=== PATIENT | male | born 1965 | race Caucasian/White ===

== ENCOUNTER 2018-10-28 21:06 | Emergency (ER) | payer BC ==
[~2018-10-28] VITALS: Ht 182.9 cm; Wt 95.3 kg
[2018-10-28 21:13] VITALS: Ht 182.9 cm; Wt 95.3 kg
[2018-10-28 22:11] LABS: BASOPHIL % 0.9 % (0-2); PLATELET COUNT 297 x10^3mcL (130-400); RED CELL DISTRIBUTION WIDTH 12.7 % (11.5-14.5)
[2018-10-28 22:23] LABS: CALCIUM 8.8 mg/dL (8.5-10.1); CARBON DIOXIDE 29.9 mmol/L (21-32); CHLORIDE SERUM 104 mmol/L (98-107); GFR1 > 60 mL/min; GLUCOSE SERUM 151 mg/dL (74-106); POTASSIUM SERUM 4.1 mmol/L (3.5-5.1); SODIUM SERUM 140 mmol/L (136-145)
[2018-10-28 22:36] LABS: ALBUMIN 3.9 g/dL (3.4-5.0); ALKALINE PHOSPHATASE 101 U/L (46-116); ALT/SGPT 42 U/L (16-63); AST/SGOT 28 U/L (15-37); BILIRUBIN TOTAL 0.62 mg/dL (0.20-1.00); FREE T4 0.81 ng/dL (0.76-1.46); LIPASE 159 IU/L (73-393); TOTAL PROTEIN, SERUM 7.6 g/dL (6.4-8.2)
[2018-10-28 22:55] LABS: UA SPECIFIC GRAVITY >=1.030 (1.005-1.035); microscopic required? YES; urine erythrocyte NEGATIVE (NEGATIVE)
[2018-10-28 23:12] LABS: AMPHETAMINE QUAL UR NONE DETECTED (See below)
[2018-10-29 01:24] VITALS: BP 109/80
== END 2018-10-29 01:24 | disposition home or self-care (01) ==
LOC: ED 21:06
PROVIDERS: Emergency Medicine
DX: R55 Syncope and collapse (principal); R10.30 Lower abdominal pain, unspecified; R19.7 Diarrhea, unspecified; R61 Generalized hyperhidrosis
CPT/HCPCS: 36415; 83880; 84439; 87804

== ENCOUNTER 2020-03-13 07:08 | Day surgery (SDC) | payer BC ==
[~2020-03-13] VITALS: Ht 182.9 cm; Wt 93.0 kg
[2020-03-13 07:46] VITALS: BP 123/84
[2020-03-13 10:17] VITALS: BP 123/86
== END 2020-03-13 10:00 | disposition home or self-care (01) ==
LOC: DS 07:08 → OR 08:30 → DS 10:00
PROVIDERS: ATTEND Internal Medicine
DX: Z12.11 Encounter for screening for malignant neoplasm of colon (principal); K64.4 Residual hemorrhoidal skin tags; L29.0 Pruritus ani; Z82.49 Family history of ischemic heart disease and other diseases of the circulatory system
CPT/HCPCS: G0121; 45378; J1200; J1610; J2250; J2310; J3010; J3490